=== PATIENT | male | born 1945 | race Caucasian/White ===

== ENCOUNTER 2019-12-07 09:57 | Outpatient (CLI) | payer MEDICARE, OTHER, SELFPAY ==
--- NOTE | 2019-12-07 10:28 | NM_ITS ---
WS: [id number] NUCLEAR MEDICINE LUNG VENTILATION AND PERFUSION CLINICAL INFORMATION: ABNORMALITIES OF BREATHING TECHNIQUE: Ventilation/perfusion lung scan with 32.5 mCi technetium 99m DTPA. 5.4 mCi technetium 99m MAA COMPARISON: None. FINDINGS: Correlation radiograph December 07, 2019. Normal symmetric radiotracer uptake on the anterior and post erior perfusion images. A few matched ventilation/perfusion defects. No mismatched ventilation/perfus ion defects. Low probability for pulmonary embolus. Patchy heterogeneous uptake on the perfusion imag es compatible with emphysema. NM/NM pul vent and perfus* [id number] IMPRESSION: 1. Low probability for pulmonary embolus.
--- NOTE | 2019-12-07 10:55 | XR_ITS ---
WS: [id number] XR chest 2V* [id number] REASON FOR EXAM: SHORTNESS OF BREATH FINDINGS: Mild tortuosity of the thoracic aorta. The heart size is within normal limits. No active pulmonary parenchymal pleural disease. Degenerative changes in the mid and lower thoracic spine. XR/XR chest 2V* [id number] IMPRESSION: No acute chest abnormality.
== END 2019-12-07 09:58 | disposition home or self-care (01) ==
LOC: RAD 10:08
PROVIDERS: Visit Provider Internal Medicine Pulmonary Disease
DX: R06.02 Shortness of breath (principal); R06.9 Unspecified abnormalities of breathing
CPT/HCPCS: 71046; 78014; A9540; A9567

== ENCOUNTER 2020-10-10 07:39 | Outpatient (CLI) | payer MEDICARE, OTHER, SELFPAY ==
[2020-10-10 07:51] VITALS: BMI 45.3
--- NOTE | 2020-10-10 07:54 | ECG_ITS ---
[facility] Test Date: 2020-10-10 Pat Name: Rojelio Mello Department: Room: Gender: Male Mental Health Clinician: : 1945 Requested By: Sheela Zabala Order Number: [id number] Cristela MD: SHEELA ZABALA Interpretive Statements NAME OF STUDY: LEXISCAN SESTAMIBI STRESS TEST INDICATION: Shortness of Breath, NOTE: Please note that this is the electrocardiogram portion of the Lexiscan/Sestamibi stress test. The perfusion scan will be documented separately. DATA: Baseline heart rate was 52 beats per minute. Baseline blood pressure was 134/65 millimeters of mercury. Target heart rate was 145. Maximum heart rate achieved was 80. which was 55 % of the predicted target heart rate. Maximum blood pressure was 148/65 millimeters of mercury. The reason for ending the test was completion of the protocol. The patient did not experience any symptoms. ELECTROCARDIOGRAM: BASELINE: Sinus bradycardia. Normal axis. Right bundle branch block EXERCISE: After Lexiscan injection, no ST-T changes suggestive of ischemic noted. No arrhythmia noted. CONCLUSION: Please note due to baseline abnormality of the EKG specificity and sensitivity of the EKG portion of LexiScan MIBI stress test will be low 1. EKG not suggestive of ischemia 2. Lexiscan injection unremarkable. 3. Perfusion scan will be documented separately. Electronically Signed On 10-11-2020 21:16:43 CDT by SHEELA ZABALA [email or web address]
--- NOTE | 2020-10-10 07:55 | NMCV_ITS ---
NM linus perf SPECT r/s* [id number] Funmilayo Rojelio Age: 75 Gender: M : 1945 Exam Date: 10/10/2020 08:52 Ordering Phys: Sheela Zabala MD ([email or web address]) Technologist: ALAINA Fuentes Exam Location: [facility] Indications: SHORTNESS OF BREATH STRESS TEST Please see separate stress test report in [facility] for full findings IMAGE PROTOCOL Rest/Stress 1 Lexiscan Day Radiopharmaceutical Dose (mCi) Administration Site Administered by Rest: Tc-99m 10.9 IV ALAINA Devlin Sestamibi Stress:Tc-99m 32.7 IV ALAINA Devlin Sestamibi Rest: 10-Oct-2020 60 Discovery 630 Stress: 10-Oct-2020 30 Discovery 630 0.4mg Lexiscan. Images obtained in supine and prone position. SPECT RESULTS Technical Quality: Excellent Raw Data Analysis: Normal Image Corrections: No attenuation or motion correction applied Summed Stress Score: 12 Summed Rest Score: 4 Summed Difference Score: 8 PERFUSION FINDINGS Large area of fixed perfusion defect noted in basal to distal inferior and basal to mid inferolateral wall surrounded by medium-sized area of moderate reversibility suggestive of norma-infarct ischemia. 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 Medium-sized area of mild reversibility suggestive of possible ischemia noted in the mid to distal anterior wall however cannot rule out artifact. EKG segment will be documented separately. Sheela Zabala MD (Electronically Signed) Final Date: 10 October 2020 19:15 S
[2020-10-10 09:52] VITALS: BP 148/60; PULSE 64
[2020-10-10] MEDS: regadenoson 0.4 Mg/5 ml Syringe IVP (11:45)
== END 2020-10-10 07:40 | disposition home or self-care (01) ==
LOC: CDL 07:41
PROVIDERS: PCP Nurse Practitioner Family; Visit Provider Internal Medicine Cardiovascular Disease
DX: R06.02 Shortness of breath (principal); I25.2 Old myocardial infarction
CPT/HCPCS: 78452; 93017; A9500; J2785